=== PATIENT | male | born 2000 | race Caucasian/White ===

== ENCOUNTER 2021-03-25 01:48 | Emergency (ER) | payer OTHER, SELFPAY ==
[2021-03-25 01:52] VITALS: BP 150/85; PULSE 96; RESP 18; TEMP 36.7; O2SAT 100
--- NOTE | 2021-03-25 02:04 | ECG_ITS ---
Measurements Intervals [place] Rate: 103 P: 28 [place]: 162 QRS: -8 QRSD: 84 T: -2 QT: 307 QTc: 404 Interpretive Statements SINUS TACHYCARDIA BORDERLINE T WAVE ABNORMALITY- INFERIOR LEADS BORDERLINE ECG Electronically Signed On 03-25-2021 9:31:54 CDT by Burton Stockton D.O.
[2021-03-25 02:36] LABS: Basophils Percent Auto 0.4 % (0.2-1.2); Eosinophils Absolute Auto 0.3 K/mm3 (0-0.3); Eosinophils Percent Auto 2.6 % (0-4.4); Hematocrit 43.6 % (42.0-52.0); Hemoglobin 15.7 g/dL (14.0-18.0); Immature Granulocyte Absolute 0.03 K/mm3 (0.00-0.031); Immature Granulocyte Percent A 0.3 % (0-0.5); Lymphocytes Absolute Auto 4.42 K/mm3 (0.9-3.2); Mean Corpuscular Hemoglobin 33.3 pg (26-34); Mean Corpuscular Volume 92.6 fl (80-100); Mean Platelet Volume 10.3 fl (7.4-10.4); Monocytes Absolute Auto 1.2 K/mm3 (0.1-0.6); Monocytes Percent Auto 11.1 % (2.6-8.5); Neutrophils Absolute Auto 4.8 K/mm3 (1.3-6.7); Neutrophils Percent Auto 44.6 % (45.5-73.1); Platelet Count Result 265 k/mm3 (150-375); Red Blood Count 4.71 M/mm3 (4.6-6.20); White Blood Count 10.8 K/mm3 (4.5-10.0)
[2021-03-25 02:38] LABS: Acetaminophen < 10 ug/mL (10-30); Salicylate < 1.0 mg/dL (2-20)
--- NOTE | 2021-03-25 02:41 | ED.GENADULT ---
HPI - General Adult General Chief complaint: Psychiatric Symptoms <Abram Carbajal MD - Last Filed: 03/25/21 06:53> Stated complaint: SI, cut/wound <Abram Carbajal MD - Last Filed: 03/25/21 06:53> Time Seen by Provider: 03/25/21 02:00 <Abram Carbajal MD - Last Filed: 03/25/21 06:53> History of Present Illness HPI narrative: Patient is 20-year-old gentleman who presents the emergency department with chief complaint of lacerations to left upper extremity and suicidal ideation. The patient reports he has history of depression is followed by the [place] [facility] and tonight was drinking got upset and proceeded to perform 2 cuts on his left upper patient reports there was a significant amount of bleeding reports that he also did multiple superficial cuts states he was using a bread knife cuts. Patient reports no other injuries reports he is up-to-date on his tetanus status. Patient reports he has had thoughts of harming himself and harming others. <Abram Carbajal MD - Last Filed: 03/25/21 06:53> Related Data Allergies/adverse reactions: Allergies Allergy/AdvReac Type Severity Reaction Status Date / Time No Known Allergies Allergy Verified 03/25/21 01:51 <Abram Carbajal MD - Last Filed: 03/25/21 06:53> Review of Systems Review of Systems: A 10 system review of systems was completed on the patient and is negative except for what is stated in the HPI. Nursing and ancillary documentation was reviewed. <Abram Carbajal MD - Last Filed: 03/25/21 06:53> [facility] Family History Family History: Family History Other Family history of alcoholism Hypertension <Abram Carbajal MD - Last Filed: 03/25/21 06:53> Social History Social History: Social History Smoking status: Never smoker Alcohol intake: never Substance use type: prescription drug <Abram Carbajal MD - Last Filed: 03/25/21 06:53> Exam Narrative: GENERAL: Well-appearing, well-nourished, and in no acute distress. HEAD: Normocephalic, atraumatic. EYES: PERRLA and EOMI. ENT: Nares clear, no rhinorrhea or epistaxis. Mucous membranes moist. NECK: Supple. CHEST: Clear to auscultation. No respiratory distress. HEART: Regular rate and rhythm. No murmur heard. Normal peripheral pulses. ABDOMEN: Soft, nontender, nondistended, normal active bowel sounds. EXTREMITIES: Normal range of motion. No edema. There is a 3 cm and 2 cm laceration to the left upper extremity that proceed to gape open on exam. SKIN: Warm, dry, no rash. NEURO: No focal deficits. Alert and oriented x3. PSYCH: Normal mood and affect. <Abram Carbajal MD - Last Filed: 03/25/21 06:53> Course Course Emergency Course: The patient's wounds were closed the patient is up-to-date on his tetanus status his initial blood alcohol level was 195 at 219. A repeat alcohol level will be drawn at 719 as this is 5 hours from the original blood draw and the patient should be below 80 at that time. <Abram Carbajal MD - Last Filed: 03/25/21 06:53> Reevaluation(s) Reevaluation #1: PAtient is no longer suicidal. He was assessed by social worker school from [place]. Patient has family at bedside . He will be discharged home with safety contract. <Rubi Chaney MD - Last Filed: 03/25/21 18:11> Date: 03/25/21 <Rubi Chaney MD - Last Filed: 03/25/21 18:11> Time: 11:03 <Rubi Chaney MD - Last Filed: 03/25/21 18:11> Vital Signs Vital signs: Vital Signs Temperature 98.1 F 03/25/21 01:52 Pulse Rate 96 03/25/21 01:52 Respiratory Rate 18 03/25/21 01:52 Blood Pressure 150/85 H 03/25/21 01:52 Pulse Oximetry 100 03/25/21 01:52 Temperature 98.1 F 03/25/21 01:52 Pulse Rate 79 03/25/21 11:16 Respira
[2021-03-25 02:42] LABS: Ethanol 195 mg/dL (<10)
[2021-03-25 02:45] LABS: Alanine Aminotransferase 49 U/L (4-50); Albumin Level 4.7 g/dL (3.5-5.1); Alkaline Phosphatase 56 U/L (38-126); Anion Gap 15 mmol/L (8-16); Aspartate Amino Transferase 42 U/L (17-59); Bilirubin,Total 0.4 mg/dL (0.2-1.3); Blood Urea Nitrogen 13 mg/dL (9-20); Calcium 8.8 mg/dL (8.4-10.2); Carbon Dioxide 19 mmol/L (22-30); Chloride 109 mmol/L (98-107); Estimated CRCL calculation 126 ml/min; Estimated Glomerular Filt Rate > 60; Glucose 117 mg/dL (65-110); Potassium 3.8 mmol/L (3.4-5.0); Sodium 143 mmol/L (137-145)
[2021-03-25 03:14] LABS: Add Urine Microscopic? NO; Appearance Urine Clear (Clear); Bilirubin Urine Negative (Negative); Blood Urine Negative (Negative); Color Urine Colorless (Yellow); Glucose Urine UA Negative (Negative); Ketones Urine Negative (Negative); Leukocyte Esterase Ur Negative LEU/UL (Negative); Nitrate Urine Negative (Negative); Protein Urine Negative (Negative); Urobilinogen Urine Negative mg/dL (<2.0)
[2021-03-25] MEDS: LIDOCAINE HCL 1% LOCAL INJ 20 ML VIAL 10 ML INFILTRATE (03:14)
--- NOTE | 2021-03-25 03:15 | PC.NURSE ---
Lidocaine given via MD
[2021-03-25 03:25] LABS: Amphetamine Screen Urine Negative (Negative); Barbiturate Screen Urine Negative (Negative); Benzodiazepines Screen Urine Negative (Negative); Cannabinoid Screen Urine Negative (Negative); Cocaine Screen Urine Negative (Negative); Methadone Screen Urine Negative (Negative); Opiate Screen Urine Negative (Negative); Phencyclidine Screen Urine Negative (Negative)
--- NOTE | 2021-03-25 03:30 | PC.NURSE ---
Pt getting upset about having to stay in the ED. Pt states he just wanted to get sutures and go home Pt states he is going to walk out and leave . Updated Dr and equipment records supervisor
[2021-03-25 03:42] LABS: Specific Grav Ur 1.003 (1.001-1.035)
[2021-03-25] MEDS: HALOPERIDOL LACTATE 5 MG/ML VIAL IM (03:44)
[2021-03-25] MEDS: LORazepam INJ (*CRX) 2 MG/ML VIAL IM (03:44)
[2021-03-25] MEDS: diphenhydrAMINE HCl INJ 50 MG/ML VIAL IM (03:50)
--- NOTE | 2021-03-25 03:50 | PC.NURSE ---
Pt allowed this RN to medicate him to help him calm down.
[2021-03-25 08:05] LABS: Ethanol 86 mg/dL (<10)
[2021-03-25 09:17] LABS: Ethanol 48 mg/dL (<10)
[2021-03-25 11:16] VITALS: BP 157/99; PULSE 79; RESP 18; O2SAT 98
--- NOTE | 2021-03-25 11:18 | PC.NURSE ---
Patient given clothing to change into after discharge, patient refused to take green scrubs off and walked out of ED in scrubs.
== END 2021-03-25 11:19 | disposition home or self-care (01) ==
PROVIDERS: General Practice; Emergency Provider Emergency Medicine
DX: S41.112A Laceration without foreign body of left upper arm, initial encounter (principal); F32.A Depression, unspecified; F10.920 Alcohol use, unspecified with intoxication, uncomplicated; Y90.6 Blood alcohol level of 120-199 mg/100 ml; X78.1XXA Intentional self-harm by knife, initial encounter
CPT/HCPCS: 12002; 36415; 80053; 80307; 81003; 84443; 85025; 93005; 96372; 99284; J1200; J1630; J2060

== ENCOUNTER 2021-08-17 01:43 | Observation (INO) | payer OTHER, SELFPAY ==
[2021-08-17] VITALS (10 sets, daily range): BP systolic 110–142; BP diastolic 58–91; PULSE 72–106; RESP 12–23; TEMP 36.6–37.1; O2SAT 96–100; BMI 33.5
--- NOTE | 2021-08-17 01:43 | ECG_ITS ---
Measurements Intervals [place] Rate: 97 P: 23 [place]: 160 QRS: -4 QRSD: 93 T: 0 QT: 315 QTc: 401 Interpretive Statements SINUS RHYTHM MODERATE VOLTAGE CRITERIA FOR LVH, CONSIDER NORMAL VARIANT [MEETS CRITERIA IN ONE OF: R(aVL), S(V1), R(V5), R(V5/V6)+S(V1)] NONSPECIFIC T-WAVE ABNORMALITY COMPARED TO ECG 03/25/2021 02:20:49 NO DIFFERENCE Electronically Signed On 08-17-2021 16:04:37 CDT by Reno Fragoso M.D.
[2021-08-17 05:39] LABS: Alanine Aminotransferase 49 U/L (4-50); Albumin Level 4.2 g/dL (3.5-5.1); Alkaline Phosphatase 54 U/L (38-126); Anion Gap 11 mmol/L (8-16); Aspartate Amino Transferase 43 U/L (17-59); Bilirubin,Total 0.4 mg/dL (0.2-1.3); Blood Urea Nitrogen 14 mg/dL (9-20); Calcium 9.3 mg/dL (8.4-10.2); Carbon Dioxide 21 mmol/L (22-30); Chloride 107 mmol/L (98-107); Estimated Glomerular Filt Rate > 60; Glucose 121 mg/dL (65-110); Magnesium 1.9 mg/dL (1.6-2.3); Potassium 4.1 mmol/L (3.4-5.0); Sodium 139 mmol/L (137-145)
[2021-08-17 05:40] LABS: Amphetamine Screen Urine Negative (Negative); Barbiturate Screen Urine Negative (Negative); Benzodiazepines Screen Urine Negative (Negative); Cannabinoid Screen Urine Negative (Negative); Cocaine Screen Urine Negative (Negative); Methadone Screen Urine Negative (Negative); Opiate Screen Urine Negative (Negative); Phencyclidine Screen Urine Negative (Negative)
[2021-08-17 05:42] LABS: Acetaminophen < 10 ug/mL (10-30); Ethanol 68 mg/dL (<10); Salicylate < 1.0 mg/dL (2-20)
[2021-08-17 06:00] LABS: Ammonia 105 umol/L (9-30)
[2021-08-17 06:08] LABS: Free T4 Free Thyroxine Reflex 1.19 ng/dL (0.78-2.19)
[2021-08-17 06:13] LABS: Valproic Acid 91.5 ug/mL (50-120)
[2021-08-17 07:05] LABS: Total Triiodothyronine (T3) 1.26 NG/ML (0.97-1.69)
--- NOTE | 2021-08-17 07:40 | PC.NURSE ---
This pt came in during downtime and it took some time for the V number on the chart to get corrected once charting system came back online. Charting has been caught up to date by this RN. All progress notes to be charted here with appropriate times. 0217 Poison control contacted about intentional overdose. Poison control recommends watching for TECHNICAL SERVICES MANAGER depression, GI symptoms, tremors, and acidosis. Due to Depakote being extended release the pt will need to be monitored for 7 hours after ingestions. Pt will be monitored until 0800. Poison control to follow up. 0437 Poison control called to follow up. Lab and EKG results read to poison control. Pt resting comfortably with lights dimmed. Poison control recommends adding valproic acid and ammonia levels to labs. This RN will send samples to lab. [id number] Shira calls again to follow up. Gives this RN the case number so day shift can follow up. Case number is [id number]
[2021-08-17] MEDS: LACTULOSE 20 GM/30 ML UDC PO (08:37)
--- NOTE | 2021-08-17 08:45 | PC.NURSE ---
Pt was cleared medically at [address] Iqbal, Pt will be admitted to ICU bed 1
--- NOTE | 2021-08-17 09:16 | ADMGEN ---
This patient, Efrem Vann, was admitted to Intensive Care Unit-1. Patient/family oriented to hospital policies and general routines including ID bracelet, bed and alarms, visiting hours, pain management, procedures, bathroom and other care routines, personal items, smoking policy, room service/diet, and visiting hours. Information on how to activate the Rapid Response Team has been discussed. Patient/Family are encouraged to report perceived risks to care and to ask questions if they do not understand what they are told or what they should do.
--- NOTE | 2021-08-17 09:37 | PM.IMHP ---
H&P: HPI History of Present Illness Date/Time: 08/17/21 09:37 Patient is a 20-year-old male with past medical history of anxiety/depression, suicide attempts, cutting disorder who presents to ED after suicide attempt taking 20 tablets of Depakote and 3 tablets of mirtazapine while drinking alcohol. This is not his 1st suicide attempt. He is feeling depressed. Patient has significant family history of depression both parents. Patient lives with his . He vapes equivalent to 1 pack per day. He drinks a 5th of vodka a week. On my evaluation patient denies suicidal ideation. He is asymptomatic and awaiting placement at psychiatric facility. In the ED: His labs and vitals are stable, ammonia level is elevated at 105. He was given lactulose 20 g in the ED. Patient will be admitted for observation for medical clearance before transfer to psychiatric facility, poison control with like to follow up the ammonia level and Depakote level. Crisis to be consult after poison Control clears patient. Chief Complaint: Suicide attempt with Depakote Review of Systems Review of Systems: Constitutional: No Fever, No Chills, No Night Sweats, No Fatigue, No Malaise ENT/Mouth: No Hearing Changes, No Ear Pain, No Nasal Congestion, No Sinus Pain, No Hoarseness, No sore throat, No Rhinorrhea, No Swallowing Difficulty Eyes: No Eye Pain, No Redness, No Vision Changes Cardiovascular: No Chest Pain, No Palpitations, No Dyspnea on Exertion, No Orthopnea, No Claudication, No Edema Respiratory: No Cough, No Sputum, No Wheezing, No Shortness of Breath Gastrointestinal: No Nausea, No Vomiting, No Diarrhea, No Constipation, No Abdominal Pain, No Heartburn, No Hematochezia, No Melena Genitourinary: No Dysuria, No Urinary Frequency, No Hematuria, No Urinary Incontinence, No Urgency Musculoskeletal: No Arthralgias, No Myalgias, No Joint Swelling, No Joint Stiffness, No Back Pain Skin: No Skin Lesions, No Pruritis, No Hair Changes Neuro: No Weakness, No Numbness, No Paresthesias, No Loss of Consciousness, No Syncope, No Dizziness, No Headache Psych: No Anxiety/Panic, No Depression, No Insomnia. He denies any suicide ideation, denies any homicidal ideation. Heme: No Bruising, No Bleeding Lymph: No Adenopathy Endocrine: No Polyuria, No Polydipsia, No Temperature Intolerance [facility] Past Medical History Medical History Anxiety Depression Suicide attempt Family History Family History Other Depression Family history of alcoholism Hypertension Social History Social History Social History: Smoking status: Current every day smoker Tobacco type: e-cigarettes/vaping Alcohol intake: current Drinks per week: 6 Alcohol use details: vodka Substance use: never Substance use type: does not use Living arrangements: with family Spiritual care concerns: No Meds Home Medications and Allergies Home Medications Medication Instructions Recorded Confirmed Type aripiprazole 5 mg PO DAILY 08/17/21 08/17/21 History divalproex 1,500 mg PO HS 08/17/21 08/17/21 History melatonin 10 mg PO HS PRN 08/17/21 08/17/21 History mirtazapine 7.5 mg PO HS 08/17/21 08/17/21 History sertraline 150 mg PO DAILY 08/17/21 08/17/21 History Allergies Allergy/AdvReac Type Severity Reaction Status Date / Time No Known Allergies Allergy Verified 08/17/21 09:17 Vital Signs Vital Signs - 24 hr 08/17/21 01:43 08/17/21 03:00 08/17/21 04:00 Temperature 36.6 C Pulse Rate 103 H 102 H 89 Respiratory Rate 16 23 H 20 Blood Pressure 142/91 H 112/58 L 122/68 Pulse Oximetry 99 98 99 08/17/21 05:43 08/17/21 06:54 08/17/21 07:50 Temperature 36.6 C Pulse Rate 87 84 88 Respiratory Rate 18 16 19 Blood Pressure 114/65 127/74 121/82 Pulse Oximetry 97 99 100 08/17/21 08
[2021-08-17 10:56] LABS: Ammonia 38 umol/L (9-30)
[2021-08-17 12:21] LABS: Valproic Acid 155.9 ug/mL (50-120)
[2021-08-17 16:44] LABS: EDCOVIDSCREEN Negative (Negative)
[2021-08-17] MEDS: NICOTINE (*PBKC) 4 MG GUM PO (22:04)
[2021-08-18] VITALS: BP 129/89; PULSE 89; RESP 20; TEMP 36.8; O2SAT 99
[2021-08-18] MEDS: NICOTINE (*PBKC) 4 MG GUM PO (00:29)
[2021-08-18 01:38] LABS: Valproic Acid 133.1 ug/mL (50-120)
--- NOTE | 2021-08-18 01:46 | PC.NURSE ---
Spoke with Jigna ROBERTS at poison control and updated with most recent valproic acid level. Recommends repeat level in the morning.
[2021-08-18] MEDS: ALPRAZolam (*CRX) 0.25 MG TABLET PO (02:39)
--- NOTE | 2021-08-18 07:33 | PC.NURSE ---
Spoke with poison control, reported that the valproic acid level is 113. Vitals have been stable. Patient has been medically cleared by hospitalist. Poison control has cleared the patient.
[2021-08-18 08:00] VITALS: BP 111/63; PULSE 65; RESP 20; TEMP 35.9; O2SAT 98
--- NOTE | 2021-08-18 10:51 | PM.IMPN ---
Progress Note: A&P Assessment and Plan (1) Hyperammonemia: Code(s): E72.20 - Disorder of urea cycle metabolism, unspecified Status: Acute (2) Suicide attempt: Code(s): T14.91XA - Suicide attempt, initial encounter Status: Acute Additional Plan # suicide attempt -patient ingested Depakote 20 tabs, mirtazapine -other lab work is within normal limits CBC, BMP, thyroid function, acetaminophen level, salicylate level, UDS alcohol level. Valproic acid level has been trended downward and now normalized to 113 -vital signs are stable -crisis evaluated patient and he requires inpatient psychiatric evaluation # hyperammonemia, resolved --ammonia level elevated 105, received 20 g lactulose, now down to 38. No signs of encephalopathy, no need to follow-up # nicotine dependence -patient vapes at home equivalent to a pack a day -can give nicotine patch if requested # alcohol use -patient is asymptomatic, CIWA score 0 on my evaluation Diet: Regular DVT prophylaxis: CONNOR score 0, early ambulation, SCDs Code status: Full code Disposition: Patient is medically clear and stable for crisis evaluation, plan will be for involuntary psychiatric admission Time Spent With Patient Time with patient: 15 - 25 minutes Subjective Date/time seen: 08/18/21 10:51 Patient seen examined. He is doing well this morning. Valproic acid level has come down to 113. Poison Control has signed off on patient. Patient is medically stable for discharge to psychiatric facility. Crisis has been notified. He will be involuntary admission to psychiatric facility. Patient denies fever, chills, nausea, vomiting, diarrhea, chest pain, shortness of breath. Review of Systems Review of Systems: All systems reviewed & are unremarkable except as noted in HPI and below Exam Narrative: - GENERAL: Pleasant male in no acute distress. Well-nourished. - EYES: EOMI. Anicteric. - HENT: Moist mucous membranes. - LUNGS: Clear to auscultation bilaterally, no wheezing, rhonchi, or rales. - CARDIOVASCULAR: Regular rate and rhythm. No murmur. No JVD. - ABDOMEN: Soft, non-tender and non-distended. No palpable masses. - EXTREMITIES: No edema. Peripheral pulses 2+. Non-tender. - NEUROLOGIC: No focal neurological deficits. CN II-XII grossly intact. - PSYCHIATRIC: Awake, Alert and oriented x 3. Appropriate mood and affect. Denies suicidal ideation, homicidal ideation - SKIN: No rashes or lesions. Warm. Multiple scars on his arms from previous cutting episodes. - LYMPH: No cervical lymphadenopathy. Objective Data Vital Signs Vital Signs: Vital Signs - 24 hr 08/17/21 16:00 08/18/21 00:00 08/18/21 08:00 Temperature 36.8 C 36.8 C 35.9 C L Pulse Rate 97 89 65 Respiratory Rate 16 20 20 Blood Pressure 137/72 129/89 111/63 Pulse Oximetry 100 99 98 Intake/Output Intake/Output: Intake & Output 08/15/21 08/16/21 08/17/21 08/18/21 23:59 23:59 23:59 23:59 Intake Total 640 550 Output Total 400 Balance 240 550 Meds/Results Medications: Active Medications Generic Name Dose Route Start Last Admin Trade Name Freq PRN Reason Stop Dose Admin Ibuprofen 400 mg 08/17/21 08:14 Ibuprofen 400 Mg Tablet PO Q6H PRN Mild Pain (1-3) or Fever Nicotine Polacrilex 4 mg 08/17/21 21:56 08/18/21 00:29 Nicotine (*Pbkc) 4 Mg Gum PO 4 mg PRN PRN Administration Nicotine Cravings Ondansetron HCl 4 mg 08/17/21 08:14 Ondansetron Inj 4 Mg/2 Ml Vial IV PUSH Q4H PRN Nausea Labs Labs: Laboratory Results - last 24 hr 08/17/21 08/17/21 08/17/21 10:24 11:03 16:25 Ammonia 38 H Valproic Acid 155.9 H* SARS-CoV-2 IgG/IgM Ag?Rapid Negative 08/17/21 08/18/21 08/18/21 17:45 00:42 05:59 Ammonia Valproic Acid 147.0 H* 133.1 H* 113.0 SARS-CoV-2 IgG/IgM Ag?Rapid
--- NOTE | 2021-08-18 14:29 | PM.DS ---
DS: Admitting Diagnosis Discharge Date 08/18/21 Admitting Diagnosis Suicide attempt DS: Discharge Diagnosis Discharge Diagnosis (1) Suicide attempt: Code(s): T14.91XA - Suicide attempt, initial encounter Status: Acute (2) Hyperammonemia: Code(s): E72.20 - Disorder of urea cycle metabolism, unspecified Status: Acute DS: Summary Hospital Course Reason for hospitalization: Suicide attempt Hospital Course: Patient is a 20-year-old male with past medical history of anxiety/depression, suicide attempts, cutting disorder who presents to ED after suicide attempt taking 20 tablets of Depakote and 3 tablets of mirtazapine while drinking alcohol. This is not the 1st suicide attempt he has had. He was drunk when he had this suicide attempt as he was feeling very depressed. After sobering up he has become asymptomatic and regretted the overdose. He was seen by crisis who originally had suggested inpatient involuntary psychiatric placement however on re-evaluation patient appeared to have good social support at home and outpatient follow up plan. As patient is a he is limited to where he can go for further treatment, Crisis public health social worker suggested patient will do better at home with resources he has. Patient's has been updated. Plan will be for patient to go home with safety contract in follow-up with his PCP and psychiatrist. His ammonia level was followed which was treated with lactulose and improved. His valproic acid level was followed to its peak and subsequent normalization. Poison Control was following case and have signed off at time of discharge. Crisis has written a safety contract with the patient and believe he will do well with the safety plan despite his suicide attempt history. At time of discharge patient's vitals are stable, labs stable, patient is stable for discharge home. Patient understands and agrees with plan. Status at Discharge Cognitive/behavioral status at discharge: at baseline Functional status at discharge: independent ambulation Overall status at discharge: patient is back to baseline Time Spent with Patient Time attestation: Total time spent providing and/or coordinating discharge services:35 Time spent: Greater than 30 minutes Exam Narrative: - GENERAL: Pleasant male in no acute distress. Well-nourished. - EYES: EOMI. Anicteric. - HENT: Moist mucous membranes. - LUNGS: Clear to auscultation bilaterally, no wheezing, rhonchi, or rales. - CARDIOVASCULAR: Regular rate and rhythm. No murmur. No JVD. - ABDOMEN: Soft, non-tender and non-distended. No palpable masses. - EXTREMITIES: No edema. Peripheral pulses 2+. Non-tender. - NEUROLOGIC: No focal neurological deficits. CN II-XII grossly intact. - PSYCHIATRIC: Awake, Alert and oriented x 3. Appropriate mood and affect. Denies suicidal ideation, homicidal ideation - SKIN: No rashes or lesions. Warm. Multiple scars on his arms from previous cutting episodes. - LYMPH: No cervical lymphadenopathy. DS: Data Data Completed and Pending Labs on day of discharge: Labs from last 24 hours 08/18/21 08/18/21 08/17/21 05:59 00:42 17:45 Valproic Acid 113.0 133.1 H* 147.0 H* SARS-CoV-2 IgG/IgM Ag?Rapid 08/17/21 16:25 Valproic Acid SARS-CoV-2 IgG/IgM Ag?Rapid Negative Discharge Plan Discharge Attending physician on discharge: Derek Easton Discharging Clinician: Derek Easton Anticipated Discharge Date/Time: 08/18/21 14:26 Patient Disposition: Home, Self-Care Activity: as tolerated Diet: regular Discharge Instructions: Please follow-up with your psychiatrist and the recommendations from Crisis. No new prescriptions. Please be careful and take care of yourself. Patient Instructions: Help Prevent Suicide (DC), Suicide Prevention (DC) Patient Language: Croatian Stand Alone Forms: General Discharge Information Follow-up/Referrals: PHYSICIAN NOT ON STAFF,NONSTA
== END 2021-08-18 15:30 | disposition home or self-care (01) ==
LOC: ANHED 06:17 → ANHICU 08:35
PROVIDERS: Internal Medicine; Physician Assistant; Admitting Provider Student in an Organized Health Care Education/Training Program; Emergency Provider Emergency Medicine; Visit Provider Student in an Organized Health Care Education/Training Program
DX: T42.6X2A Poisoning by other antiepileptic and sedative-hypnotic drugs, intentional self-harm, initial encounter (principal); T43.022A Poisoning by tetracyclic antidepressants, intentional self-harm, initial encounter; T14.91XA Suicide attempt, initial encounter; Z20.822 Contact with and (suspected) exposure to COVID-19; F41.9 Anxiety disorder, unspecified; F32.A Depression, unspecified; F17.290 Nicotine dependence, other tobacco product, uncomplicated; E72.20 Disorder of urea cycle metabolism, unspecified; Z72.89 Other problems related to lifestyle
CPT/HCPCS: 36415; 80053; 80164; 80307; 82140; 83735; 84439; 84443; 84480; 87426; 93005; 99285; A9270; C9803; G0378